=== PATIENT | female | born 2005 ===

== ENCOUNTER 2024-08-01 08:02 | Day surgery (SDC) | payer MEDICAID, OTHER ==
[~2024-08-01 08:02] MED LIST: Sodium Chloride 0.9% 10 ML Syringe FLUSH PRN; Sodium Chloride 0.9% 2.5 ML Syringe FLUSH PRN; Sodium Chloride 0.9% 20 ML SDV IV PRN; cefOXitin 2 GM in Sodium Chloride 0.9% 50 ML IV ONE
[2024-08-01] MEDS ORDERED: Morphine 2 MG/ML SYRINGE IVPUSH PRN (08:11)
[2024-08-01] MEDS ORDERED: Metoclopramide 10 MG/2 ML SDV IVPUSH PRN (08:11)
[2024-08-01] MEDS ORDERED: Ondansetron 4 MG/2 ML SDV IVPUSH PRN (08:11)
[2024-08-01] MEDS ORDERED: fentaNYL 50 MCG/ML SDV IVPUSH PRN (08:11)
[2024-08-01] MEDS ORDERED: Naloxone 0.4 MG/ML SDV IVPUSH PRN (08:11)
[2024-08-01] MEDS ORDERED: Albuterol 0.083% 2.5 MG/3 ML Neb Soln NEB PRN (08:11)
[2024-08-01] MEDS ORDERED: Phenylephrine HCl In 0.9% NaCl 1 MG/10 ML Syringe IVPUSH PRN (08:11)
[2024-08-01] MEDS ORDERED: HYDROmorphone 1 MG/ML Syringe IVPUSH PRN (08:11)
[2024-08-01] MEDS ORDERED: Chloroprocaine 3% 30 MG/ML 20 ML SDV ONE (08:22)
[2024-08-01] MEDS ORDERED: Midazolam 1 MG/ML 2 ML SDV ONE (08:23)
[2024-08-01] MEDS ORDERED: propofoL 500 MG/50 ML 50 ML ONE (08:23)
[2024-08-01] MEDS: Lactated Ringers 1,000 ML IV SCH (08:42)
[2024-08-01] MEDS ORDERED: Ondansetron 4 MG/2 ML SDV ONE (09:03)
[2024-08-01] MEDS ORDERED: Bupivacaine 0.5% 30 ML SDV ONE (09:13)
[2024-08-01] MEDS ORDERED: Lidocaine 2% 11 ML Jelly Filled Syringe ONE (09:14)
[2024-08-01] MEDS ORDERED: cefOXitin 1 GM Vial ONE (09:52)
[2024-08-01] MEDS ORDERED: Ketorolac 30 MG/ML SDV ONE (10:09)
== END 2024-08-01 11:59 | disposition home or self-care (01) ==
LOC: MW.SDS 08:02
PROVIDERS: ATTEND Surgery
DX: K64.4 Residual hemorrhoidal skin tags (principal); K64.8 Other hemorrhoids; J45.909 Unspecified asthma, uncomplicated; Z79.899 Other long term (current) drug therapy
CPT/HCPCS: 46250; 81025; A9270; J0131; J0665; J0694; J1885; J2250; J2401; J2405; J2704; J7120; 00902